=== PATIENT | male | born 1945 | race Caucasian/White ===

== ENCOUNTER 2016-12-29 13:23 | Inpatient (IN) | payer OTHER ==
--- NOTE | 2016-12-29 14:00 | NUR ---
PATIENT ADMITTED ON A 5150 HOLD FOR DTS, UNDER THE CARE OF DR LANCE (WHO IS COVERING FOR DR LAUREN) AND DR SMITH. PER HOLD PATIENT CALLED HIS SISTER AND FRIEND AND STATED HE WAS GOING TO END HIS LIFE BY TAKING ALL OF HIS XANAX AND ALCOHOL AND DRINK HIMSELF TO . UPON FACE TO FACE ASSESSMENT, PATIENT IS ALERT X 3, STABLE CONDITION, ANXIOUS,AGITATED, PARANOID, BUT COOPERATIVE. PATIENT DENIES ANY SI AT THIS TIME AND STATED THAT IT WAS ALL A MISUNDERSTANDING. ADMISSION PAPERWORK COMPLETED, BELONGINGS CHECKED IN AND SIGNED FOR BY PATIENT, CONTRABAND PUT IN LOCKER 220 A. BOTH SHAHID AWARE OF NEW ADMISSION, DR SMITH AWARE OF NEED TO RECONCILE MEDICATION IN SYSTEM,AT THIS TIME PATIENT IS IN ROOM, CALM, COOPERATIVE, NO DISTRESS NOTED, WILL CONTINUE TO MONITOR Q 15 MIN FOR SAFETY AND BEHAVIOR.
[2016-12-29] MEDS ORDERED: MAGNESIUM HYDROXIDE 30 ML UDC PO PRN (15:00)
[2016-12-29] MEDS ORDERED: MAG HYDROX/AL HYDROX/SIMETH 30 ML UDC PO PRN (15:00)
[2016-12-29] MEDS ORDERED: ACETAMINOPHEN 325 MG TABLET PO PRN (15:00)
[2016-12-29] MEDS ORDERED: TEMAZEPAM 15 MG CAPSULE PO PRN (15:00)
[2016-12-29] MEDS ORDERED: TRAZ-147 PO (15:30)
[2016-12-29] MEDS ORDERED: PARO30TA3 PO (15:30)
[2016-12-29] MEDS ORDERED: ALPR2TAB2 PO (15:30)
[2016-12-29] MEDS ORDERED: BUPR-51 PO (15:30)
[2016-12-29] MEDS ORDERED: LISI-603 PO (15:30)
[2016-12-29 16:54] VITALS: BP 148/95
--- NOTE | 2016-12-29 19:30 | NUR ---
GPS RN NOTE, RECEIVED PATIENT AWAKE AND IN BED NO S/S OR COMPLAINTS OF PAIN AT THIS TIME. PATIENT IS DISPLAYING NO S/S OF APPARENT DISTRESS AT THIS TIME. PATIENT BREATHING IS UNLABORED WITH EQUAL RISE AND FALL OF THE CHEST. PATIENT IS ALERT AND ORIENTED X3 ON ROOM AIR WITH A SPOO2 94 %. PATIENT IS MED COMPLIANT, ANXIOUS, COOPERATIVE, AND CALM. PATIENT DENIES SUICIDE IDEATIONS AND HOMICIDAL IDEATIONS AT THIS TIME. PATIENT ASSISTED WITH TURNING AND REPOSITIONING Q2HR AND PRN FOR COMFORT AND CIRCULATION. PATIENT HAS NO NEEDS AT THIS TIME. PATIENT EDUCATED ON THE USE OF THE CALL [place]EVER[place]. PATIENT BED SIDE RAILS UP X 2 FOR SAFETY. PATIENT BED IS LOCKED AND LOW WILL CONTINUE TO MONITOR AND MAINTAIN SAFETY Q15 MIN WITH THE HELP OF STAFF.
[2016-12-29] MEDS: clonazePAM 0.5 MG TABLET PO PRN (20:12)
--- NOTE | 2016-12-29 20:12 | NUR ---
GPS RN NOTE, PATIENT HAS A COMPLAINT OF FEELING ANXIOUS AND IS REQUESTING KLONOPIN AT THIS TIME. PATIENT VITAL SIGNS ARE STABLE. GAVE KLONOPIN 0.5MG PO Q4HR PRN ORDERED. WILL REASSESS FOR ANXIETY AND I WILL CONTINUE TO MONITOR THIS PATIENT.
[2016-12-29 20:41] VITALS: BP 154/95
--- NOTE | 2016-12-29 21:33 | NUR ---
GPS RN NOTE, PATIENT HAS A COMPLAINT OF NOT BEING ABLE TO SLEEP AND IS REQUESTING RESTORIL AT THIS TIME. PATIENT VITAL SIGNS ARE STABLE. GAVE RESTORIL 15MG PO PRN ORDERED. WILL REASSESS FOR INSOMNIA AND I WILL CONTINUE TO MONITOR THIS PATIENT.
[2016-12-30] MEDS: clonazePAM 0.5 MG TABLET PO PRN ×2 (05:56→09:03)
[2016-12-30 07:21] LABS: ALBUMIN 3.6 g/dL (3.4-5.0); BILIRUBIN,TOTAL 1.8 mg/dL (0.2-1.0); CALCIUM, SERUM 8.9 mg/dL (8.5-10.1); CREATININE 0.9 mg/dL (0.6-1.3); POTASSIUM 4.2 mmol/L (3.5-5.1); TOTAL PROTEIN, SERUM 7.3 g/dL (6.4-8.2)
[2016-12-30 07:30] LABS: CHOLESTEROL 158 mg/dL (<200); HDL CHOLESTEROL 58 mg/dL (40-60); LDL 91 mg/dL (0-99); TRIGLYCERIDES 88 mg/dL (30-150)
[2016-12-30 08:00] VITALS: BP 153/96
[2016-12-30] MEDS: LISINOPRIL (20MG) 20 MG TABLET PO SCH (09:03)
--- NOTE | 2016-12-30 09:03 | NUR ---
patient complain of anxiety medicated with Klonopin 0.5mg .
--- NOTE | 2016-12-30 12:43 | NUR ---
UR Review: ILEANA faxed over clinicals to [facility] [phone] / fax number [phone]. Psych H&P and progress notes are unavailable yet. ILEANA will fax those once patient is evaluated and notes are inputted.
[2016-12-30] MEDS: BUPROPION XL 150 MG TAB.ER.24 PO SCH (14:00)
--- NOTE | 2016-12-30 14:06 | NUR ---
Initial Discharge Plan Patient resides at [address] [place], [place] [id number], and wishes to return upon discharge. ILEANA called pt's DPOA, Julian Soila [phone]. ILEANA asked Julian to fax over paperwork, but Julian stated he was at a doctor's appointment and will do so at a later time. ILEANA asked Julian if he would be able to pick patient up upon discharge and provide transportation, which Julian stated he could do. ILEANA will work to form a safe and proper discharge.
[2016-12-30 16:10] VITALS: BP 156/90
[2016-12-30] MEDS: PAROXETINE HCL 20 MG TABLET PO SCH (17:00)
[2016-12-30 21:00] VITALS: BP 166/83
[2016-12-30] MEDS: TRAZODONE 50 MG TABLET PO SCH (21:04)
[2016-12-31 08:00] VITALS: BP 139/94
[2016-12-31] MEDS: PAROXETINE HCL 20 MG TABLET PO SCH ×2 (09:09→18:10)
[2016-12-31] MEDS: BUPROPION XL 150 MG TAB.ER.24 PO SCH (09:09)
[2016-12-31] MEDS: LISINOPRIL (20MG) 20 MG TABLET PO SCH (09:09)
--- NOTE | 2016-12-31 12:05 | NUR ---
SW spoke with patient and conducted a substance abuse assessment and intervention. Patient will be provided with resources to address his alcohol dependence upon discharge.
[2016-12-31 16:51] VITALS: BP 158/98
[2016-12-31 18:00] VITALS: BP 153/82
[2016-12-31 20:17] VITALS: BP 146/87
[2016-12-31] MEDS: TRAZODONE 50 MG TABLET PO SCH (22:24)
[2017-01-01 08:00] VITALS: BP 155/84
--- NOTE | 2017-01-01 08:22 | NUR ---
DR. LANCE GAVE AN ORDER TO D/C HOME TODAY. PT. WITHOUT DISTRESS, DENIES SUICIDAL AND HOMICIDAL AND TO FOLLOW UP WITH PSYCH AND MEDICAL DOCTORS.
[2017-01-01 08:59] VITALS: BP 155/84
[2017-01-01] MEDS: LISINOPRIL (20MG) 20 MG TABLET PO SCH (08:59)
[2017-01-01] MEDS: BUPROPION XL 150 MG TAB.ER.24 PO SCH (09:00)
[2017-01-01] MEDS: PAROXETINE HCL 20 MG TABLET PO SCH (09:00)
--- NOTE | 2017-01-01 09:56 | NUR ---
Discharge Note Patient will be discharged home to [address] [place] [address], via private transportation. Patient will be picked up by his friend and LOR Cm [phone] in his vehicle. Patient has an appointment with his pulpwood dealer, Dr. Abraham [NEELIMA Alcazar] [address] [facility] [address] [place] [address], on Thursday, 01/06 at 2:15pm. Patient has on [facility] [address] [facility] [address] [place] [address] on Thursday, 01/02 at 9am. Patient a was encouraged to present at Al[facility]olic [facility] [place] [address] [facility] [address] Chel Wyatt at noon on Friday 01/05. Patient was encouraged to contact the [facility] [address], [place] [address] to obtain further information on impact of alcohol on ones health and seek treatment.
--- NOTE | 2017-01-01 13:17 | NUR ---
GROUP LEADER WAFER POLISHING NOTES PATIENT DISCHARGE AT THIS TIME GOING HOME. PATIENT A/O X3/4, MED COMPLIANT, V/S STABLE, AMBULATORY SELF CARE, NO C/O PAIN, MEDICALLY STABLE. PATIENT DENIED SI/HI/ AVH AT THIS TIME. MED RECONCILIATION, AND DISCHARGE ORDER REVIEWED AND EXPLAINED TO PATIENT. PATIENT VERBALIZED UNDERSTANDING. BELONGING RETURNED BACK TO THE PATIENT. PATIENT SIGN PAPERWORK. ESCORTED PATIENT TO THE [facility] FOR SAFETY. 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
== END 2017-01-01 13:17 | disposition home or self-care (01) | DRG 885 ==
LOC: GPS 13:25
PROVIDERS: ADMIT Psychiatry & Neurology Psychiatry; ATTEND Internal Medicine
DX: F33.2 Major depressive disorder, recurrent severe without psychotic features (principal); F29 Unspecified psychosis not due to a substance or known physiological condition; F10.20 Alcohol dependence, uncomplicated; I10 Essential (primary) hypertension; F41.9 Anxiety disorder, unspecified; G47.00 Insomnia, unspecified; Z79.899 Other long term (current) drug therapy; Z73.6 Limitation of activities due to disability
CPT/HCPCS: 36415; 80053-TC; 80061-TC; 87081-TC